=== PATIENT | male | born 1990 | race Caucasian/White ===

== ENCOUNTER 2016-09-03 02:56 | Emergency (ER) | payer OTHER ==
[~2016-09-03] VITALS: Ht 188 cm; Wt 97.5 kg
[2016-09-03] MEDS ORDERED: NEOMY/BACITRA/POLYMYXIN B OINT UD PACKET TP ONE (03:52)
[2016-09-03] MEDS ORDERED: IBUPROFEN 800 MG TABLET ONE (03:52)
[2016-09-03] MEDS: IBUPROFEN 800 MG TABLET PO ONE (03:55)
[2016-09-03] MEDS: NEOMY/BACITRA/POLYMYXIN B OINT UD PACKET TP ONE (04:03)
--- NOTE | 2016-09-03 04:50 | NUR ---
Patient discharged to home in stable conditon. Written and verbal after care instructions given. Patient verbalizes understanding of instructions.
== END 2016-09-03 04:51 | disposition home or self-care (01) ==
LOC: ER 03:05
DX: S89.92XA Unspecified injury of left lower leg, initial encounter (principal); S50.312A Abrasion of left elbow, initial encounter; S50.311A Abrasion of right elbow, initial encounter; F10.20 Alcohol dependence, uncomplicated; F12.10 Cannabis abuse, uncomplicated; F17.200 Nicotine dependence, unspecified, uncomplicated; Y08.89XA Assault by other specified means, initial encounter; Y93.89 Activity, other specified; Y92.89 Other specified places as the place of occurrence of the external cause; Y99.8 Other external cause status
CPT/HCPCS: 73560; A4663

== ENCOUNTER 2016-12-21 21:26 | Emergency (ER) | payer OTHER ==
[~2016-12-21] VITALS: Ht 188 cm; Wt 102.1 kg
[2016-12-21] MEDS: ONDANSETRON 4 MG/2 ML VIAL IV ONE (22:04)
[2016-12-21] MEDS: KETOROLAC TROMETHAMINE 30 MG INJ IVP ONE (22:04)
[2016-12-21] MEDS: IV NORMAL SALINE 1000 ML BAG IV ONE (22:06)
[2016-12-21] MEDS ORDERED: ONDANSETRON 4 MG/2 ML VIAL ONE (22:12)
[2016-12-21] MEDS ORDERED: KETOROLAC TROMETHAMINE 30 MG INJ ONE (22:12)
[2016-12-21 22:16] LABS: POTASSIUM 3.7 mmol/L (3.5-5.1)
[2016-12-21 22:22] LABS: BILIRUBIN,DIRECT 0.1 mg/dL (0.0-0.2); BILIRUBIN,TOTAL 0.6 mg/dL (0.2-1.0); TOTAL PROTEIN, SERUM 7.5 g/dL (6.4-8.2)
[2016-12-21 22:23] LABS: BASOPHILS % (AUTO) 0.5 % (0.0-2.0); EOSINOPHILS # (AUTO) 0.1 K/uL (0.0-0.7); EOSINOPHILS % (AUTO) 1.3 % (0.0-7.0); HEMATOCRIT 41.6 % (40-50); HEMOGLOBIN 13.8 G/DL (14.0-18.0); LYMPHOCYTES # (AUTO) 2.2 K/UL (0.8-4.8); LYMPHOCYTES % (AUTO) 24.4 % (20.5-51.5); MEAN CORPUSCULAR HEMOGLOBIN 29.6 UUG (27.0-31.0); MEAN CORPUSCULAR HGB CONC 33 g/dL (32.0-37.0); MEAN CORPUSCULAR VOLUME 88.9 FL (82.0-92.0); MONOCYTES # (AUTO) 0.7 K/UL (0.1-1.30); MONOCYTES % (AUTO) 8.1 % (0.0-11.0); NEUTROPHILS # (AUTO) 6.2 K/UL (1.8-8.9); NEUTROPHILS % (AUTO) 65.7 % (38.5-71.5); PLATELET COUNT (AUTO) 265 K/UL (150-450); RED BLOOD CELL COUNT(AUTO) 4.68 MIL/UL (4.7-6.1); WHITE BLOOD COUNT (AUTO) 9.2 K/UL (4.0-11.2)
[2016-12-21 22:52] LABS: *BLOOD, URINE NEGATIVE (NEGATIVE); *KETONES,URINE NEGATIVE (NEGATIVE); *PROTEIN,URINE 1+ (NEGATIVE); *UROBILINOGEN,URINE 0.2 E.U./dl (NORMAL); LEUKOCYTE ESTERASE ,URINE NEGATIVE (NEGATIVE); NITRITE, URINE NEGATIVE (NEGATIVE); UGLUCOSE NEGATIVE (NEGATIVE)
[2016-12-21 22:53] LABS: *BILIRUBIN,URIN NEGATIVE (NEGATIVE); *CLARITY,URINE SLIGHTLY HAZY (CLEAR); *COLOR,URINE DARK YELLOW (YELLOW)
[2016-12-21 22:54] LABS: MUCUS,URINE MANY /LPF (0-FEW); URINE AMORPHOUS URATE FEW /HPF; WBC,URINE 0-3 /HPF (0-3)
--- NOTE | 2016-12-21 23:26 | NUR ---
Patient discharged to home in stable conditon. Written and verbal after care instructions given. Patient verbalizes understanding of instructions.
== END 2016-12-21 23:27 | disposition home or self-care (01) ==
LOC: ER 21:26
DX: E86.0 Dehydration (principal); D64.9 Anemia, unspecified; F17.200 Nicotine dependence, unspecified, uncomplicated; F12.90 Cannabis use, unspecified, uncomplicated; K59.00 Constipation, unspecified
CPT/HCPCS: 36415; 80048; 80076; 81001; 83690; 85025; 96361; 96374; 96375; 99284; A4663; J1885; J2405; J7030

== ENCOUNTER 2017-02-08 12:31 | Emergency (ER) | payer OTHER ==
[~2017-02-08] VITALS: Ht 188 cm; Wt 104.3 kg
[2017-02-08] MEDS ORDERED: IBUPROFEN 800 MG TABLET PO ONE (14:45)
[2017-02-08] MEDS ORDERED: IBUPROFEN 800 MG TABLET ONE (15:04)
--- NOTE | 2017-02-08 15:05 | NUR ---
PT WAS EVALUATED BY DR SANTOS. PT WAS MEDICATED ACCORDING TO ER MD SINGER. PT TOLERATED TO MEDICATION WITHOUT COMPLICATIONS. PT WAS D/C TO HOME. D/C INSTRUCTIONS GIVEN TO THE PT.
[2017-02-08 15:06] VITALS: BP 132/84
== END 2017-02-08 15:07 | disposition home or self-care (01) ==
LOC: ER 12:36
DX: S83.92XA Sprain of unspecified site of left knee, initial encounter (principal); F17.200 Nicotine dependence, unspecified, uncomplicated; X58.XXXA Exposure to other specified factors, initial encounter; Y93.89 Activity, other specified; Y92.9 Unspecified place or not applicable; Y99.9 Unspecified external cause status
CPT/HCPCS: 73564; 99284; A4663

== ENCOUNTER → 2017-03-25 | Emergency (ER) | payer OTHER ==
[~2017-03-25] VITALS: Ht 188 cm; Wt 102.1 kg
[~2017-03-25] MED LIST: HYDROMORPHONE 1 MG/1 ML DISP.SYRIN IM ONE; HYDROMORPHONE 4 MG/1 ML DISP.SYRIN ONE; ONDANSETRON 4 MG/2 ML VIAL IM ONE; ONDANSETRON 4 MG/2 ML VIAL ONE; QUETIAPINE FUMARATE 100 MG TAB
--- NOTE | 2017-03-25 20:02 | NUR ---
Pt seen by Dr. Ahumada. Xrays obtained. Pt medicated for discomfort, will monitor for effects of medication.
--- NOTE | 2017-03-25 21:42 | NUR ---
Jony wrap applied to L. ankle, pos CMS s/p application. PT given crutch instruction and demonstrated understanding of use. Pt sts has pain improved. Pt stable for discharge per Dr. Ahumada. Pt given ACi. Pt verbalized understanding of dc instructions. Pt wheeled out of ER via w/c with ride home.
== END | disposition home or self-care (01) ==
LOC: ER 19:08
DX: S93.602A Unspecified sprain of left foot, initial encounter (principal); S93.402A Sprain of unspecified ligament of left ankle, initial encounter; F17.200 Nicotine dependence, unspecified, uncomplicated; X50.9XXA Other and unspecified overexertion or strenuous movements or postures, initial encounter; Y93.89 Activity, other specified; Y92.89 Other specified places as the place of occurrence of the external cause; Y99.8 Other external cause status
CPT/HCPCS: 73610; 73630; A4663; J1170; J2405

== ENCOUNTER 2017-06-29 20:18 | Emergency (ER) | payer OTHER ==
[~2017-06-29] VITALS: Ht 188 cm; Wt 104.3 kg
[~2017-06-29 20:18] MED LIST changes: -HYDROMORPHONE 1 MG/1 ML DISP.SYRIN IM ONE; -HYDROMORPHONE 4 MG/1 ML DISP.SYRIN ONE; -ONDANSETRON 4 MG/2 ML VIAL IM ONE; -ONDANSETRON 4 MG/2 ML VIAL ONE
--- NOTE | 2017-06-29 22:18 | NUR ---
Patient discharged to home in stable conditon. Written and verbal after care instructions given. Patient verbalizes understanding of instructions.
== END 2017-06-29 22:18 | disposition home or self-care (01) ==
LOC: ER 20:24
DX: J20.8 Acute bronchitis due to other specified organisms (principal); B96.89 Other specified bacterial agents as the cause of diseases classified elsewhere; F17.210 Nicotine dependence, cigarettes, uncomplicated; Z79.899 Other long term (current) drug therapy
CPT/HCPCS: 99283; A4663

== ENCOUNTER 2017-07-03 20:51 | Emergency (ER) | payer OTHER ==
[~2017-07-03] VITALS: Ht 188 cm; Wt 102.1 kg
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
[2017-07-03] MEDS ORDERED: ONDANSETRON ODT 4 MG TAB.RAPDIS SL ONE (21:15)
[2017-07-03] MEDS ORDERED: ONDANSETRON ODT 4 MG TAB.RAPDIS ONE (21:15)
[2017-07-03] MEDS ORDERED: HYDROCODONE/APAP 10-325 MG TABLET PO ONE (21:15)
--- NOTE | 2017-07-03 21:15 | NUR ---
CALLED [employer] [phone] TO REPORT INCIDENT. SPOKE TO CHOPPER FEEDER [phone]. [employer] WILL SENT UNIT TO [facility]
[2017-07-03] MEDS ORDERED: HYDROCODONE/APAP 10-325 MG TABLET ONE (21:19)
--- NOTE | 2017-07-03 21:23 | NUR ---
PT IN ROUTE TO CT
--- NOTE | 2017-07-03 21:39 | NUR ---
PT BACK FROM CT
--- NOTE | 2017-07-03 21:44 | NUR ---
MD WAYNE AT BEDSIDE
--- NOTE | 2017-07-03 21:48 | NUR ---
Patient discharged to home in stable conditon. Written and verbal after care instructions given. Patient verbalizes understanding of instructions. Patient reported reduced headache and eye pain upon discharge. Patient able to ambulate unassisted with steady gait. Patient left with all personal belongings.
[2017-07-03 21:53] VITALS: BP 122/88
== END 2017-07-03 21:48 | disposition home or self-care (01) ==
LOC: ER 20:54
DX: S06.0X0A Concussion without loss of consciousness, initial encounter (principal); F17.210 Nicotine dependence, cigarettes, uncomplicated; W51.XXXA Accidental striking against or bumped into by another person, initial encounter; Y93.89 Activity, other specified; Y92.89 Other specified places as the place of occurrence of the external cause; Y99.8 Other external cause status; Z79.899 Other long term (current) drug therapy
CPT/HCPCS: 70450; A4663; Q0162